=== PATIENT | female | born 1990 | race Caucasian/White ===

== ENCOUNTER 2021-02-09 01:37 | Inpatient (IN) | payer OTHER ==
[~2021-02-09] VITALS: Ht 172.7 cm; Wt 77.6 kg
--- NOTE | 2021-02-09 03:53 | NUR ---
0245-SWABBED BOTH NARES FOR RAPID COVID TEST
--- NOTE | 2021-02-09 09:30 | PR ---
[facility] [address], [place] [address] Signed Progress Notes IP Datetime Report Generated by CPN: 02/09/2021 09:30 PROGRESS NOTES: [id number] Impression: Reassuring Heart Rate Procedures: Artificial ROM Plan: Continue Present Management VITAL SIGNS: [id number] Vital Signs: Reviewed; Within Normal Limits EXAM: [id number] Dilatation: 4.5 Effacement: 70 Station: -2 Contractions: tracing poorly, q 2-4 min MEMBRANES: [id number] Pooling: Positive Nitrazine: Positive Membranes Status: Ruptured Comments: 38 5/7 weeks gestation PROM at 0300 Comfortable with epidural no further dilation from 4.5 cm, AROM residual bag performed yielding lg amount bloody fluid. Pt informed, will continue to monitor, recheck in 1 hour FETUS A: [id number] FHR Baseline: 120 Variability: Moderate 6-25bpm Accelerations: 15X15 Decelerations: None FHR Category: Category I Presentation: Vertex Comments on Fetus A: No evidence of acidemia FETUS B: [id number] Signing Physician: Radha Paige DO Copies: ~ *Electronically Signed* 02/09/21929 RADHA PAIGE DO PATIENT NAME: THERON COTA PROGRESS NOTE DATE OF : [birth year] PHYSICIAN: RADHA PAIGE #: [id number] REPORT IS CONFIDENTIAL AND NOT TO BE RELEASED WITHOUT AUTHORIZATION
--- NOTE | 2021-02-10 08:45 | PR ---
[facility] [address] [facility] [place], [place] [address] Signed PP Progress Notes Datetime Report Generated by CPN: 02/10/2021 07:36 SUBJECTIVE: [id number] Pain: Within Normal Limits Nausea/Vomiting: Denies Flatus: Yes Bowel Movement: No Vital Signs: [id number] Vital Signs: Reviewed; Within Normal Limits Cardiovascular: Normal Respiratory: Normal Abdomen/Uterus: Normal Lochia: Normal Breasts: Normal Extremities: Normal Progress: Normal Exam Comments: FFBU dima De La Rosa's BL IMPRESSION/PLAN/PROCEDURES: [id number] Impression: Normal Progression Plan: Continue Present Management; Discharge Procedures: None Progress Notes: PPD#1 s/p @ 38 5/7 weeks gestation Pain well controlled with motrin well Planning IUD for contraception Desires DC to home today Signing Physician: Radha Paige DO Copies: ~ *Electronically Signed* 02/10/21 0736 RADHA PAIGE DO PATIENT NAME: THERON COTA PROGRESS NOTE DATE OF : [birth year] PHYSICIAN: RADHA PAIGE DO [facility] #: [id number] REPORT IS CONFIDENTIAL AND NOT TO BE RELEASED WITHOUT AUTHORIZATION
== END 2021-02-10 14:30 | disposition home or self-care (01) | DRG 807 ==
LOC: FBCO 01:37 → FBC 02:24
PROVIDERS: ADMIT Obstetrics & Gynecology; ATTEND Obstetrics & Gynecology
PROC: 10907ZC Drainage of Amniotic Fluid, Therapeutic from Products of Conception, Via Natural or Artificial Opening (ICD-10-PCS; principal; 2021-02-09)
PROC: 10E0XZZ Delivery of Products of Conception, External Approach (ICD-10-PCS; 2021-02-09)
PROC: 0KQM0ZZ Repair Perineum Muscle, Open Approach (ICD-10-PCS; 2021-02-09)
PROC: 00HU33Z Insertion of Infusion Device into Spinal Canal, Percutaneous Approach (ICD-10-PCS; 2021-02-09)
PROC: 3E0R3BZ Introduction of Anesthetic Agent into Spinal Canal, Percutaneous Approach (ICD-10-PCS; 2021-02-09)
DX: O42.92 Full-term premature rupture of membranes, unspecified as to length of time between rupture and onset of labor (principal); Z37.0 Single live birth; Z3A.38 38 weeks gestation of pregnancy; O69.81X0 Labor and delivery complicated by cord around neck, without compression, not applicable or unspecified; O70.1 Second degree perineal laceration during delivery; Z20.822 Contact with and (suspected) exposure to COVID-19
CPT/HCPCS: 85027; C9803; J2590; J2795; J3010; J7121; U0003